=== PATIENT | female | born 1955 | race Caucasian/White ===

== ENCOUNTER 2018-04-04 14:45 | Emergency (ER) | payer MEDICARE, OTHER ==
[2018-04-04] MEDS: LORAZEPAM 1 MG TAB PO (15:17)
[2018-04-04] MEDS: DIPHENHYDRAMINE 25 MG CAP PO (15:20)
== END 2018-04-04 17:32 | disposition home or self-care (01) ==
LOC: E/R 14:45
DX: F41.0 Panic disorder [episodic paroxysmal anxiety] (principal); R06.02 Shortness of breath
CPT/HCPCS: 93005; 99283; 99283-25